=== PATIENT | male | born 2000 | race Caucasian/White ===

== ENCOUNTER 2020-06-27 01:21 | Emergency (ER) | payer SELFPAY ==
[~2020-06-27] VITALS: Ht 172.7 cm; Wt 93.7 kg
[2020-06-27 01:22] VITALS: BP 137/90
== END 2020-06-27 02:28 | disposition left against medical advice (07) ==
LOC: M ED 01:21
DX: Z53.21 Procedure and treatment not carried out due to patient leaving prior to being seen by health care provider (principal)

== ENCOUNTER 2020-12-28 21:30 | Emergency (ER) | payer OTHER, SELFPAY ==
[~2020-12-28] VITALS: Ht 172.7 cm; Wt 93.2 kg
[2020-12-28 21:31] VITALS: BP 126/59
[2020-12-28] MEDS ORDERED: IBUP1TAB6 PO (21:38)
[2020-12-28] MEDS ORDERED: ACET32TAB PO (21:38)
--- NOTE | 2020-12-29 00:07 | REPVR ---
PROCEDURE INFORMATION: Exam: XR Left Ankle Exam date and time: 12/28/2020 11:04 PM Age: 20 years old Clinical indication: Injury or trauma; Other: Twisted ankle; Swelling (edema); Left; Additional info: Twisted coming out of [place] TECHNIQUE: Imaging protocol: XR Left ankle. Views: 3 or more views. COMPARISON: No relevant prior studies available. FINDINGS: Bones/joints: Normal osseous alignment. No acute fracture. No asymmetric ankle mortise widening. Fifth metatarsal base is intact. No osteochondral lesion of the talar dome. No evidence of osseous tarsal coalition. No concerning osseous lesion. Developmental os trigonum is present. Joint spaces are well maintained. Soft tissues: Anterolateral ankle soft tissue swelling is present. IMPRESSION: Anterolateral ankle soft tissue swelling. No evidence of acute fracture. Electronically signed by: Angelo Lopez On 12/29/2020 00:07:18 AM
== END 2020-12-29 02:22 | disposition left against medical advice (07) ==
LOC: M ED 21:30
DX: Z53.29 Procedure and treatment not carried out because of patient's decision for other reasons (principal)

== ENCOUNTER → 2020-12-29 | Outpatient (CLI) | payer OTHER ==
[~2020-12-29] MED LIST: ACET32TAB PO; IBUP1TAB6 PO
--- NOTE | 2020-12-30 05:02 | REP ---
INDICATION: SPRAIN COMPARISON: None. TECHNIQUE: AP, lateral, bilateral oblique views left foot. FINDINGS: The osseous structures and joint spaces are intact and normal. There is no evidence for acute fracture or dislocation. Surrounding soft tissues are unremarkable. No subcutaneous emphysema or radiodense foreign body. IMPRESSION: . No acute fracture or dislocation. <Electronically signed by Manolo Norman > 12/30/20 [id number]
== END ==
LOC: M WUC 13:37
PROVIDERS: ATTEND Physician Assistant
DX: S93.602A Unspecified sprain of left foot, initial encounter (principal); W18.30XA Fall on same level, unspecified, initial encounter; Y92.009 Unspecified place in unspecified non-institutional (private) residence as the place of occurrence of the external cause